=== PATIENT | male | born 1955 | race Caucasian/White ===

== ENCOUNTER 2018-07-11 19:56 | Observation (INO) | payer MEDICAID ==
[~2018-07-11] VITALS: Ht 180.3 cm; Wt 58.0 kg
[~2018-07-11 19:56] MED LIST: ALBU18HF2 INH; AZIT250T PO; HYDR-4383 PO
[2018-07-11 20:30] LABS: BASOPHILS # (AUTO) 0.1 X10'3 (0-0.2); BASOPHILS % (AUTO) 1.4 % (0-1); EOSINOPHILS # (AUTO) 0.1 X10'3 (0-0.9); EOSINOPHILS % (AUTO) 0.8 % (0-6); HEMATOCRIT 41.4 % (42.0-52.0); HEMOGLOBIN 14.6 g/dl (14.0-17.9); LYMPHOCYTES # (AUTO) 2.4 X10'3 (1.1-4.8); LYMPHOCYTES % (AUTO) 36.7 % (21-51); MEAN CORPUSCULAR HEMOGLOBIN 35.5 PG (27.0-31.0); MEAN CORPUSCULAR HGB CONC 35.2 g/dL (33.0-36.5); MEAN PLATELET VOLUME 7.6 FL (7.4-10.4); MONOCYTES # (AUTO) 0.6 X10'3 (0-0.9); MONOCYTES % (AUTO) 8.7 % (2-12); NEUTROPHILS # (AUTO) 3.4 X10'3 (1.8-7.7); NEUTROPHILS % (AUTO) 52.4 % (42-75); PLATELET COUNT 305 X10'3 (140-440); RED CELL DISTRIBUTION WIDTH 13.2 % (11.5-14.5); WHITE BLOOD COUNT 6.4 X10'3 (4.5-11.0)
[2018-07-11 20:47] LABS: ALANINE AMINOTRANSFERASE 34 U/L (12-78); ALKALINE PHOSPHATASE 62 IU/L (46-116); ANION GAP 16 (8-16); ASPARTATE AMINO TRANSFERASE 42 U/L (10-37); BILIRUBIN,TOTAL 0.3 MG/DL (0.1-1.0); BLOOD UREA NITROGEN 15 MG/DL (7-18); BUN/CREATININE RATIO 17.4 (5.4-32.0); CALCIUM 9.1 MG/DL (8.5-10.1); CHLORIDE 94 MMOL/L (99-107); CREATININE 0.86 MG/DL (0.60-1.10); GLUCOSE 75 MG/DL (70-104); SODIUM 132 MMOL/L (135-145); TOTAL CARBON DIOXIDE 21.9 MMOL/L (24-32); TOTAL PROTEIN 7.9 G/DL (6.4-8.2); eGFR 90 ML/MIN
[2018-07-11 20:48] LABS: INR 0.9 INR; PARTIAL THROMBOPLASTIN TIME 33 SECONDS (22-32)
[2018-07-11] MEDS ORDERED: normal saline 1000ML IV soln IVB ONE (21:50)
[2018-07-11 22:00] LABS: ETHANOL 0.306 GM/DL (0.0-0.010)
[2018-07-11 22:12] LABS: URINE AMPHETAMINE SCREEN NEGATIVE (Neg); URINE BARBITUATE SCREEN NEGATIVE (Neg); URINE BENZODIAZEPINES SCREEN NEGATIVE (Neg); URINE CANNABINOID SCREEN NEGATIVE (Neg); URINE COCAINE SCREEN NEGATIVE (Neg); URINE METHADONE SCREEN NEGATIVE (Neg); URINE OPIATE SCREEN NEGATIVE (Neg); URINE PHENCYCLIDINE SCREEN NEGATIVE (Neg)
[2018-07-11] MEDS ORDERED: LORazepam 2 mg/ml vial IV PRN (22:25)
[2018-07-11] MEDS ORDERED: acetaminophen 325mg tablet PO PRN ×2 (22:25)
[2018-07-11] MEDS ORDERED: LORazepam 1 MG tablet PO PRN (22:25)
[2018-07-11] MEDS ORDERED: aspirin 325mg tablet PO ONE (22:25)
[2018-07-11] MEDS ORDERED: mag hydrox/Alum hydrox/simeth 30ml oral suspension PO PRN (22:25)
[2018-07-11] MEDS ORDERED: magnesium hydroxide 30ml (MOM) UD suspension PO PRN (22:25)
[2018-07-11] MEDS ORDERED: ondansetron/PF 4mg/2ml inj IV PRN (22:25)
[2018-07-11] MEDS: normal saline 1000ml 1,000 ML IV SCH (22:25)
[2018-07-11] MEDS ORDERED: haloperidol lactate 5mg/ml inj IM PRN (22:25)
[2018-07-11] MEDS ORDERED: haloperidol 5mg tablet PO PRN (22:25)
[2018-07-11] MEDS ORDERED: NO HOME MEDS (22:32)
--- NOTE | 2018-07-12 01:00 | NUR ---
Patient in room PCU 3017. I have received report from Obinna NEVES and had the opportunity to ask questions and assume patient care.
--- NOTE | 2018-07-12 01:00 | NUR ---
Pt. arrived via gurney in no acute distress. Amb to bed, gait steady. Pt oriented to protocols, bed, and surroundings. Alert and oriented, C/O soreness to neck and upper back. Assisted to BR f/void, using urinal, educated to U/O rationale. Co-op w/all instructions. Reviewed medical history
[2018-07-12 02:00] VITALS: BP 135/79
[2018-07-12 03:45] LABS: BASOPHILS # (AUTO) 0.1 X10'3 (0-0.2); BASOPHILS % (AUTO) 1.3 % (0-1); EOSINOPHILS # (AUTO) 0.1 X10'3 (0-0.9); EOSINOPHILS % (AUTO) 1.6 % (0-6); HEMATOCRIT 37.1 % (42.0-52.0); HEMOGLOBIN 12.7 g/dl (14.0-17.9); LYMPHOCYTES # (AUTO) 1.4 X10'3 (1.1-4.8); LYMPHOCYTES % (AUTO) 32.4 % (21-51); MEAN CORPUSCULAR HEMOGLOBIN 35.1 PG (27.0-31.0); MEAN CORPUSCULAR HGB CONC 34.3 g/dL (33.0-36.5); MEAN CORPUSCULAR VOLUME 102.2 FL (78-98); MEAN PLATELET VOLUME 7.4 FL (7.4-10.4); MONOCYTES # (AUTO) 0.5 X10'3 (0-0.9); MONOCYTES % (AUTO) 11.4 % (2-12); NEUTROPHILS # (AUTO) 2.3 X10'3 (1.8-7.7); NEUTROPHILS % (AUTO) 53.3 % (42-75); PLATELET COUNT 250 X10'3 (140-440); RED BLOOD COUNT 3.63 X10'6 (4.70-6.10); WHITE BLOOD COUNT 4.3 X10'3 (4.5-11.0)
[2018-07-12 03:52] LABS: ALANINE AMINOTRANSFERASE 30 U/L (12-78); ALBUMIN 2.9 G/DL (3.4-5.0); ALBUMIN/GLOBULIN RATIO 0.9 (1.1-1.5); ALKALINE PHOSPHATASE 50 IU/L (46-116); ANION GAP 9 (8-16); ASPARTATE AMINO TRANSFERASE 34 U/L (10-37); BILIRUBIN,TOTAL 0.2 MG/DL (0.1-1.0); BLOOD UREA NITROGEN 15 MG/DL (7-18); BUN/CREATININE RATIO 19.5 (5.4-32.0); CALCIUM 8.2 MG/DL (8.5-10.1); CHLORIDE 105 MMOL/L (99-107); CREATININE 0.77 MG/DL (0.60-1.10); GLUCOSE 84 MG/DL (70-104); POTASSIUM 3.4 MMOL/L (3.5-5.1); SODIUM 140 MMOL/L (135-145); TOTAL CARBON DIOXIDE 25.6 MMOL/L (24-32); TOTAL PROTEIN 6.2 G/DL (6.4-8.2); eGFR > 90 ML/MIN
--- NOTE | 2018-07-12 06:05 | NUR ---
Patient in room PCU 3017. I have received report from Brittny NEVES and had the opportunity to ask questions and assume patient care.
[2018-07-12 07:00] VITALS: BP 139/80
--- NOTE | 2018-07-12 07:37 | NUR ---
Problems reprioritized. Patient report given, questions answered & plan of care reviewed with Tan NEVES.
[2018-07-12] MEDS: normal saline 1000ml 1,000 ML IV SCH (07:39)
[2018-07-12] MEDS ORDERED: thiamine 100mg tablet PO SCH (08:00)
[2018-07-12] MEDS ORDERED: folic acid 1mg tablet PO SCH (08:00)
--- NOTE | 2018-07-12 10:44 | NUR ---
Noted that pt with low BMI of 17.8. Pt currently on a regular diet pending PO intake. Pt denied any wt loss per malnutrition screen with RN. Pt with no documented decrease in muscle strength or edema. Pt appears well developed per H&P. Pt currently does not meet criteria for malnutrition. Will continue to follow. Addendum: 07/12/18 at [address] Amended: Links added.
[2018-07-12 11:00] VITALS: BP 152/82
--- NOTE | 2018-07-12 14:20 | NUR ---
Patient Discharged. Patient discharged home via private vehicle accompanied by son. IV catheter removed prior to discharge, catheter intact. Tele leads removed from patient prior to discharge. Tele box returned to senior telecommunications technician. Discharge instructions provided to patient via RN and discussed with patient via RN prior to discharge. All patient belongings in patient's possession prior to discharge. Patient escorted out of facility in wheelchair, escorted via RN. All questions and concerns addressed prior to discharge.
== END 2018-07-12 14:20 | disposition home or self-care (01) ==
LOC: ER 19:57 → PCU 3S 07-12 00:52 → CMPBEDREQ 07-12 00:55
PROVIDERS: ADMIT Hospitalist; ATTEND Hospitalist
DX: R55 Syncope and collapse (principal); R00.0 Tachycardia, unspecified; M10.9 Gout, unspecified; F10.229 Alcohol dependence with intoxication, unspecified; R79.89 Other specified abnormal findings of blood chemistry; J45.909 Unspecified asthma, uncomplicated; F17.210 Nicotine dependence, cigarettes, uncomplicated; F17.290 Nicotine dependence, other tobacco product, uncomplicated
CPT/HCPCS: 36415; 70450; 71045; 80053; 80305; 80320; 83880; 84443; 84484; 85025; 85610; 85730; 87070; 93005; 93306; 96360; 99284; G0378; J7030